=== PATIENT | male | born 1990 | race Two or more races ===

== ENCOUNTER 2016-06-29 17:36 | Emergency (ER) | payer SELFPAY ==
[~2016-06-29] VITALS: Ht 180.3 cm; Wt 86.2 kg
[2016-06-29] MEDS ORDERED: XANAX2 MG ORAL (18:11)
[2016-06-29 18:22] VITALS: BP 148/96
[2016-06-29 18:23] VITALS: BP 148/96
--- NOTE | 2016-06-29 18:23 | Emergency Room Report ---
History of Present Illness General Chief Complaint: General Complaint Source: Patient Present Illness HPI Patient comes in asking for medication refill. Patient states that he is going to go to a detox center named [facility] in [place], [place], for opioid dependence. Patient states that he is going through withdrawals currently, and is requesting short supply of medication to him to the detox center in 3 days and after that will be in [facility] for 6 months in [place], [place]. Patient states that he takes Xanax 2 mg one tab by mouth 3 times a day when necessary for anxiety. States he thought his admit date was earlier in the week so he had a refill from another facility earlier this week but that it was actually at the end of the week and now has no medication. States that he takes it without any adverse effects and denies any SI, HI, AH, VH. Allergies: Coded Allergies: No Known Allergies (Unverified , 06/29/16) Patient History Past Medical History: see triage record Pertinent Family History: none Immunizations: UTD Reviewed Nursing Documentation: PMH: Agreed, PSxH: Agreed Nursing Documentation-PMH Past Medical History: No History, Except For Hx Seizures: Yes Review of Systems All Other Systems: negative except mentioned in HPI Physical Exam Vital Signs Date Time Temp Pulse Resp B/P Pulse Ox O2 Delivery O2 Flow Rate FiO2 06/29/16 17:57 98.1 87 16 153/99 100 Room Air Sp02 EP Interpretation: reviewed, abnormal - elevated BP, but asymptomatic General Appearance: no apparent distress, alert, GCS 15, non-toxic Head: normocephalic, atraumatic Eyes: bilateral eye PERRL, bilateral eye normal inspection Neck: full range of motion, supple/symm/no masses Respiratory: chest non-tender, lungs clear, normal breath sounds, speaking full sentences Cardiovascular #1: regular rate, rhythm, no edema Musculoskeletal: digits/nails normal, gait/station normal Neurologic: alert, oriented x3, responsive, motor strength/tone normal, sensory intact, speech normal Psychiatric: judgement/insight normal, memory normal, mood/affect normal, no suicidal/homicidal ideation Skin: normal color, no rash, warm/dry, well hydrated Medical Decision Making PA Attestation Dr. Zhang is my supervising physician with whom patient management has been discussed with. Diagnostic Impression: Primary Impression: Benzodiazepine dependence ER Course Pt. presents to the ED c/o medication refill Ddx considered but are not limited to anxiety, depression, substance abuse, benzo dependence. Vital signs: are WNL, pt. is afebrile H&PE are most consistent with Benzo dependence ORDERS: none required at this time, the diagnosis is clinical ED INTERVENTIONS: none required at this time. Cures report was reviewed and showed no aberrant behaviors. DISCHARGE: At this time pt. is stable for d/c to home. Will provide printed patient care instructions, and any necessary prescriptions. Care plan and follow up instructions have been discussed with the patient prior to discharge. Last Vital Signs Date Time Temp Pulse Resp B/P Pulse Ox O2 Delivery O2 Flow Rate FiO2 06/29/16 17:57 98.1 87 16 153/99 100 Room Air Disposition: HOME, SELF-CARE Condition: Stable Scripts Alprazolam* (XANAX*) 2 Mg Tablet 2 MG ORAL TID Y for PRN ANXIETY/AGITATION, #6 TAB 0 Refills Prov: MACHELLE BREAUX 06/29/16 MACHELLE BREAUX Jun 29, 2016 18:23
== END 2016-06-29 18:25 | disposition home or self-care (01) ==
LOC: EMR 18:06
DX: Z76.0 Encounter for issue of repeat prescription (principal); F13.20 Sedative, hypnotic or anxiolytic dependence, uncomplicated
CPT/HCPCS: 99283